=== PATIENT | male | born 1945 | race Caucasian/White ===

== ENCOUNTER 2021-11-29 12:04 | Outpatient (CLI) | payer OTHER ==
[2021-11-29 23:54] LABS: SARS-CoV-2 PCR by NAA Not Detected (NotDetected)
== END 2021-11-29 12:05 | disposition home or self-care (01) ==
LOC: CSHLAB 12:04
PROVIDERS: ATTEND Internal Medicine Critical Care Medicine
DX: Z20.822 Contact with and (suspected) exposure to COVID-19 (principal)
CPT/HCPCS: U0003; U0005

== ENCOUNTER 2022-03-11 09:03 | Outpatient (CLI) | payer OTHER ==
[2022-03-11 10:33] LABS: Hemoglobin 12.7 g/dL (13.5-17.5)
[2022-03-11 10:43] LABS: Anion Gap 14 mmol/L (10-20); BUN (Urea Nitrogen) 20 mg/dL (8.4-25.7); Calc. Creatinine Clearance 0 mL/min (70-130); Calcium 9.8 mg/dL (7.8-10.44); Carbon Dioxide 23 mmol/L (23-31); Chloride 105 mmol/L (98-107); Glucose 99 mg/dL (83-110); Potassium 4.9 mmol/L (3.5-5.1); Sodium 137 mmol/L (136-145)
== END 2022-03-11 09:04 | disposition home or self-care (01) ==
LOC: CSHLAB 09:03
PROVIDERS: ATTEND Otolaryngology Plastic Surgery within the Head & Neck
DX: Z01.812 Encounter for preprocedural laboratory examination (principal); Z20.822 Contact with and (suspected) exposure to COVID-19
CPT/HCPCS: 80048; 85014; 85018; U0003; U0005

== ENCOUNTER 2022-03-15 07:51 | Day surgery (SDC) | payer OTHER ==
[2022-03-13 10:09] VITALS: BMI 19.9
[2022-03-15] MEDS ORDERED: Lidocaine 1% MPF 2 ML VIAL ONE (08:32)
[2022-03-15] MEDS ORDERED: Mupirocin 2% Ointment 22 GM Tube ONE (09:18)
[2022-03-15] MEDS ORDERED: EPINEPHrine 1 MG/ML AMP ONE (09:18)
[2022-03-15] MEDS ORDERED: Lidocaine 1% w/Epinephrine 1:100K 20 ML VIAL ONE (09:19)
[2022-03-15] MEDS ORDERED: Fentanyl 250 MCG/5 ML VIAL ONE (11:44)
[2022-03-15] MEDS ORDERED: Dexamethasone 20 MG/5 ML VIAL ONE (11:44)
[2022-03-15] MEDS ORDERED: Lidocaine 1% PF 5 ML VIAL ONE (11:44)
[2022-03-15] MEDS ORDERED: Rocuronium Bromide 10 MG/ML (10ML VIAL) ONE (11:44)
[2022-03-15] MEDS ORDERED: PROPOFOL 20 ML ONE (11:44)
[2022-03-15] MEDS ORDERED: Midazolam HCl 2 mg/2 ml Vial ONE (11:44)
[2022-03-15] MEDS ORDERED: Ondansetron PF 4 MG/2 ML Vial ONE (11:44)
[2022-03-15] MEDS ORDERED: CEFAZOLIN 1 GM VIAL ONE (11:57)
[2022-03-15] MEDS ORDERED: Fentanyl 100 MCG/2 ML VIAL ONE (14:54)
== END 2022-03-15 16:00 | disposition home or self-care (01) ==
LOC: CSHSDC 07:51
PROVIDERS: ATTEND Otolaryngology Plastic Surgery within the Head & Neck
PROC: 09HD05Z Insertion of Single Channel Cochlear Prosthesis into Right Inner Ear, Open Approach (ICD-10-PCS; principal; 2022-03-15)
DX: H90.A21 Sensorineural hearing loss, unilateral, right ear, with restricted hearing on the contralateral side (principal); H61.21 Impacted cerumen, right ear; H65.03 Acute serous otitis media, bilateral; H93.13 Tinnitus, bilateral; J30.9 Allergic rhinitis, unspecified; I10 Essential (primary) hypertension; K21.9 Gastro-esophageal reflux disease without esophagitis; M06.9 Rheumatoid arthritis, unspecified; Z79.899 Other long term (current) drug therapy; Z88.2 Allergy status to sulfonamides; Z88.5 Allergy status to narcotic agent; Z97.4 Presence of external hearing-aid
CPT/HCPCS: 69930; 70250; C1713; L8614 ×2; J0171; J0690; J1100; J2250; J2405; J2704; J3010

== ENCOUNTER 2023-07-29 10:09 | Outpatient (CLI) | payer OTHER ==
[2023-07-29 11:29] LABS: Hemoglobin 12.6 g/dL (13.5-17.5)
[2023-07-29 12:00] LABS: Anion Gap 15 mmol/L (10-20); BUN (Urea Nitrogen) 21 mg/dL (8.4-25.7); Calc. Creatinine Clearance 0 mL/min (70-130); Calcium 9.4 mg/dL (7.8-10.44); Carbon Dioxide 21 mmol/L (23-31); Chloride 109 mmol/L (98-107); Estimated GFR 78; Glucose 97 mg/dL (83-110); Potassium 4.9 mmol/L (3.5-5.1); Sodium 140 mmol/L (136-145)
== END 2023-07-29 10:10 | disposition home or self-care (01) ==
LOC: CSHLAB 10:09
PROVIDERS: ATTEND Otolaryngology Plastic Surgery within the Head & Neck
DX: Z01.812 Encounter for preprocedural laboratory examination (principal); H90.A22 Sensorineural hearing loss, unilateral, left ear, with restricted hearing on the contralateral side
CPT/HCPCS: 80048; 85014; 85018

== ENCOUNTER 2023-08-01 07:56 | Day surgery (SDC) | payer OTHER ==
[2023-07-29 11:00] VITALS: BMI 24.3
[2023-08-01] MEDS ORDERED: Lidocaine 1% PF 5 ML VIAL ONE (09:14)
[2023-08-01] MEDS ORDERED: Rocuronium Bromide 10 MG/ML (10ML VIAL) ONE (09:14)
[2023-08-01] MEDS ORDERED: Dexamethasone 20 MG/5 ML VIAL ONE (09:14)
[2023-08-01] MEDS ORDERED: PROPOFOL 20 ML ONE (09:14)
[2023-08-01] MEDS ORDERED: Ondansetron PF 4 MG/2 ML Vial ONE (09:14)
[2023-08-01] MEDS ORDERED: PHENYLEPHRINE-NS 100 MCG/ML 10 ML SYRINGE ONE (09:15)
[2023-08-01] MEDS ORDERED: Midazolam HCl 2 mg/2 ml Vial ONE (09:15)
[2023-08-01] MEDS ORDERED: ePHEDrine Sulfate 50 MG/10 ML VIAL ONE (09:15)
[2023-08-01] MEDS ORDERED: Fentanyl 250 MCG/5 ML VIAL ONE (09:15)
[2023-08-01] MEDS ORDERED: EPINEPHrine 1 MG/ML VIAL ONE (09:22)
[2023-08-01] MEDS ORDERED: Mupirocin 2% Ointment 22 GM Tube ONE (09:23)
[2023-08-01] MEDS ORDERED: CEFAZOLIN 2 GM VIAL ONE (09:23)
[2023-08-01] MEDS ORDERED: Glycopyrrolate 0.2 MG/ML 5 ML SYRINGE ONE (10:32)
[2023-08-01] MEDS ORDERED: Lidocaine 1% w/Epinephrine 1:100K 20 ML VIAL ONE (10:42)
== END 2023-08-01 13:45 | disposition home or self-care (01) ==
LOC: CSHSDC 07:56
PROVIDERS: ATTEND Otolaryngology Plastic Surgery within the Head & Neck
PROC: F0BZ09Z Cochlear Implant Rehabilitation Treatment using Cochlear Implant Equipment (ICD-10-PCS; principal; 2023-08-01)
DX: H90.A22 Sensorineural hearing loss, unilateral, left ear, with restricted hearing on the contralateral side (principal); Z88.2 Allergy status to sulfonamides; Z88.5 Allergy status to narcotic agent
CPT/HCPCS: 69930; 70250; J0171; L8614 ×2; Q9968; J1100; J2250; J2405; J2704; J3010